=== PATIENT | male | born 1950 | race Caucasian/White ===

== ENCOUNTER → 2016-09-07 | Outpatient (CLI) | payer MEDICARE ==
[~2016-09-07] MED LIST: ASA325 MG PO; ATORVASTATIN CA80 MG PO; FLOMAX DPS0.4 MG PO; HYDROCODON-ACE1 EAC4 PO; HYZAAR-100/251 TAB PO; LEXAPRO DPS20 MG PO; METOPROLOL SUC100 MG PO; MICRO-K DPS10 MEQ PO; NORVASC5 MG PO; SPIRONOLACTONE50 MG PO; WELLBUTRIN XL150 MG PO
== END | disposition home or self-care (01) ==
LOC: RAD.S 07:48
DX: R93.8 Abnormal findings on diagnostic imaging of other specified body structures (principal); M89.9 Disorder of bone, unspecified